=== PATIENT | female | born 1955 | race Caucasian/White ===

== ENCOUNTER 2019-01-25 13:36 | Inpatient (IN) ==
--- NOTE | 2019-01-25 13:46 | Emergency Department Note ---
Disposition Clinical Impression: Atrial fibrillation with RVR, Positive blood cultures Disposition: Admitted As Inpatient Condition: Good Referrals: Pauline Dawson DO [Primary Care Provider] - Forms: ED Satisfaction Letter, Work/School Release Time of Disposition: 01:30 General Adult HPI - General Chief complaint: ED General Medical Stated complaint: positive blood cultures Time Seen by Provider: 01/25/19 13:40 Source: patient, family Mode of arrival: ambulatory Limitations: no limitations Nursing Notes Reviewed: Yes Vital Signs Reviewed: Yes - History of Present Illness HPI Narrative: Patient was seen yesterday and treated for urinary tract infection. Blood culture came back positive today. Patient was called at home still has a fever and does not feel well so she was advised to come back to the hospital. She is taking her medicines as prescribed status is not feeling any better. There is been no nausea vomiting she has fever and chills no chest pain shortness breath or belly pain Onset (ago): day(s) (several) Location: other (generalized) Pain Severity: moderate Pain Scale: 8 Quality: aching Consistency: constant Improves with: nothing Worsens with: nothing - Related Data Home Medications Medication Instructions Recorded Confirmed Aspirin 81 mg PO DAILY 02/10/16 01/24/19 Cetirizine HCl [Zyrtec] 10 mg PO DAILY PRN 02/10/16 01/24/19 Cholecalciferol (D-3) [Vitamin D] 3,000 unit PO DAILY 02/10/16 01/24/19 Gabapentin [Neurontin] 300 mg PO HS 02/10/16 01/24/19 Sertraline [Zoloft] 50 mg PO DAILY 02/10/16 01/24/19 Pantoprazole Sodium [Protonix] 40 mg PO DAILY 12/10/16 01/24/19 Furosemide [Lasix] 40 mg PO DAILY 12/12/18 01/24/19 Previous Rx's Medication Instructions Recorded Ondansetron ODT [Zofran ODT] 4 mg SL Q6HR PRN #8 tab.rapdis 01/24/19 Promethazine [Phenergan] 25 mg PO Q6HR PRN #10 tablet 01/24/19 cephALEXin [Keflex] 1,000 mg PO BID #40 capsule 01/24/19 Allergies Allergy/AdvReac Type Severity Reaction Status Date / Time milnacipran [From Savella] Allergy Hives Verified 01/11/18 12:25 All systems ED: reviewed and negative except as stated. Review of Systems: As Per HPI Constitutional: Reports: as per HPI, fever, chills Eyes: Denies: eye pain, eye discharge, vision change ENT ED: Denies: ear pain, throat pain, dental pain, hearing loss, epistaxis, congestion, dysphagia Cardiovascular: Denies: chest pain, palpitations, dyspnea on exertion, edema, syncope Respiratory: Denies: cough, dyspnea, wheezes, hemoptysis, stridor Gastrointestinal: Denies: abdominal pain, nausea, vomiting, diarrhea, constipation, hematemesis, melena, hematochezia Genitourinary: Reports: as per HPI Musculoskeletal: Reports: as per HPI, myalgia. Denies: back pain, neck pain, arthralgia Integumentary: Reports: as per HPI Neurological: Denies: headache, weakness, numbness, paresthesias, confusion, abnormal gait, vertigo Psychiatric: Denies: anxiety, depression, suicidal thoughts, homicidal thoughts, auditory hallucinations, visual hallucinations Endocrine: Denies: fatigue Hematological/Lymphatic: Denies: easy bleeding, easy bruising Allergic/Immunologic: Denies: facial swelling, urticaria Past Medical History - Past Medical History Attestation: Yes The following information was validated with the patient. Source: patient, nursing notes reviewed Medical history: Reports: fibromyalgia, GERD, kidney stones, other Surgical history: Reports: hysterectomy Psychiatric history: Reports: depression PLAYER SERVICES REPRESENTATIVE history: Reports: no PLAYER SERVICES REPRESENTATIVE history - Social History Smoking Status: Never smoker Smokeless Tobacco Status: No Alcohol use: Reports: none Drug use: Reports: none Physical Exam - General Limitations: no limitations General appearance: alert, in no apparent distress - Head Head exam: atraumatic, normocephalic, normal inspection - Eye Eye exam: Present: normal appearance, PERRL, EOMI - ENT ENT exam: normal exam, normal oropharynx, mucous membranes moist - Neck Neck exam: Present: normal inspection, full ROM, trachea midline - Chest Chest inspection: Present: normal inspection, symmetric chest wall rise - Respiratory Respiratory exam: Present: normal lung sounds bilaterally - Cardiovascular Cardiovascular exam: Present: regular rate, normal rhythm, normal heart sounds - Abdominal Exam Abdominal exam: Present: soft, Non-Tender. Absent: tenderness, distention, guarding, rebound, rigidity - Extremities Exam Extremities exam: Present: normal inspection, full ROM. Absent: tenderness, pedal edema - Back Exam Back exam: Present: normal inspection, full ROM. Absent: tenderness - Neurological Exam Neurological exam: Present: alert, oriented X3 - Psychiatric Psychiatric exam: Present: normal affect, normal mood - Skin Skin exam: Present: warm, dry, intact, normal color Course Vital Signs Temperature 101.5 F H 01/25/19 13:37 Pulse Rate 121 01/25/19 13:37 Respiratory Rate 18 01/25/19 13:37 Blood Pressure 96/64 01/25/19 13:37 O2 Sat by Pulse Oximetry 95 01/25/19 13:37 Temperature 101.9 F H 01/25/19 14:48 Pulse Rate 140 01/25/19 14:48 Respiratory Rate 18 01/25/19 14:48 Blood Pressure 128/75 01/25/19 14:48 O2 Sat by Pulse Oximetry 98 01/25/19 14:48 Oxygen Delivery Oxygen Delivery Room Air Medical Decision Making - MDM Narrative Medical decision making narrative: I reviewed the patient's medication list as well as yesterday's laboratory studies Patient's condition was discussed with Dr. Vanegas who is graciously accepted admission to the hospital Dr. Vanegas requested 0.25mg of Dig - Medical Records Medical records reviewed: Yes I reviewed the patient's medical records. - Lab Data Lab results reviewed: Yes I reviewed the patient's lab results. Lab Results 01/25/19 01/25/19 Range/Units 14:04 14:04 Lactic Acid 0.9 (0.5-2.2) mmol/L Troponin I 0.05 H* (< 0.04) ng/mL - EKG Data EKG #1 EKG attestation: Yes I reviewed and interpreted this EKG. EKG results narrative: EKG attestation sinus rhythm today heart rate is 133 with A. fib with RVR QRS duration 84 ms QT interval 225 ms QTC 335 ms QRS axis is 49 degrees
[2019-01-25] MEDS ORDERED: cefTRIAXone 1,000 MG in 0.9 % Sodium Chloride Mini Bag 100 ML IVPB ONE (13:51)
[2019-01-25] MEDS ORDERED: 0.9 % Sodium Chloride 1,000 ML IVC SCH (14:00)
[2019-01-25] MEDS ORDERED: *HR* Digoxin 0.5 MG/2 ML AMPUL IVP ONE (16:24)
[2019-01-25 16:26] LABS: Basophils % 0.2 %; Hematocrit 37.1 % (35.3-44.9); Hemoglobin 11.9 g/dL (11.5-15.4); Immature Granulocytes % 0.3 % (0-4); Lymphocytes # 1.5 K/mcL (0.6-4.6); Lymphocytes % 7.3 %; Mean Corpuscular HGB Conc 32.1 g/dL (31.6-35.5); Mean Corpuscular Hemoglobin 28.8 pg (28.0-33.3); Mean Corpuscular Volume 89.8 fL (83.0-100.0); Mean Platelet Volume 10.2 fL (9.4-12.4); Monocytes # 1.1 K/mcL (0.0-1.3); Monocytes % 5.3 %; Neutrophils # 17.7 K/mcL (1.6-8.9); Platelet Count 360 K/mcL (140-400); Red Blood Count 4.13 M/mcL (3.82-4.97); Red Cell Distribution Width 13.7 % (11.5-14.5); Segmented Neutrophils % 86.9 %
[2019-01-25 16:39] LABS: Alanine Aminotransferase 14 Units/L (7-52); Albumin 3.5 g/dL (3.5-5.7); Albumin/Globulin Ratio 1.1 (1.1-2.2); Alkaline Phosphatase 79 Units/L (34-104); Aspartate Amino Transferase 19 Units/L (13-39); BUN/Creatinine Ratio 15 (6-26); Bilirubin,Total 0.4 mg/dL (0.3-1.0); Blood Urea Nitrogen 16 mg/dL (8-23); Calcium 9.3 mg/dL (8.6-10.3); Carbon Dioxide 26 mEq/L (23-29); Chloride 103 mEq/L (98-107); Globulin 3.1 g/dL (2.4-3.5); Glucose 132 mg/dL (70-105); Osmolality,Calculated 285 (280-300); Potassium 3.4 mEq/L (3.5-5.1); Sodium 136 mEq/L (136-145); Total Protein 6.6 g/dL (6.4-8.9); eGFR For Non-African Americans 51 (> 60)
[2019-01-25] MEDS ORDERED: Naloxone 0.4 MG/ML INJ IVP PRN (17:28)
[2019-01-25] MEDS ORDERED: Loratadine 10 MG TABLET PO PRN (17:28)
[2019-01-25] MEDS ORDERED: Ondansetron 4 MG/2 ML VIAL IVP PRN (17:28)
[2019-01-25] MEDS: 0.9 % Sodium Chloride 1,000 ML IVC SCH (19:42)
[2019-01-25] MEDS ORDERED: Levofloxacin 750 MG/150 ML 750 MG/150 ML BAG IVPB ONE (21:00)
[2019-01-25] MEDS: Gabapentin 300 MG CAPSULE PO SCH (21:28)
[2019-01-25 22:03] LABS: Bilirubin,Urine Negative (Negative); Blood,Urine Moderate (Negative); Clarity,Urine Clear (Clear); Color,Urine Yellow (Yellow); Glucose,Urine (UA) Normal (Normal); Ketones,Urine Negative (Negative); Leukocyte Esterase,Urine Negative (Negative); Nitrite,Urine Negative (Negative); PH,Urine 5.5 pH Units (5.0-8.0); Protein,Urine Trace mg/dL (Neg-Trace); Specific Gravity,Urine 1.015 (1.010-1.025); Urobilinogen,Urine Normal (Normal)
[2019-01-25 22:34] LABS: Bacteria,Urine Moderate per hpf (None-Few); Squamous Epithelial Cell,Urine Few per lpf (None-Few)
[2019-01-26] MEDS: 0.9 % Sodium Chloride 1,000 ML IVC SCH ×2 (03:30→09:42)
[2019-01-26 05:42] LABS: Basophils % 0.2 %; Eosinophils % 0.1 %; Hematocrit 33.1 % (35.3-44.9); Hemoglobin 10.9 g/dL (11.5-15.4); Immature Granulocytes % 0.6 % (0-4); Lymphocytes # 1.2 K/mcL (0.6-4.6); Lymphocytes % 8.5 %; Mean Corpuscular HGB Conc 32.9 g/dL (31.6-35.5); Mean Corpuscular Hemoglobin 28.8 pg (28.0-33.3); Mean Corpuscular Volume 87.3 fL (83.0-100.0); Mean Platelet Volume 10.6 fL (9.4-12.4); Monocytes # 0.7 K/mcL (0.0-1.3); Monocytes % 4.6 %; Platelet Count 317 K/mcL (140-400); Red Blood Count 3.79 M/mcL (3.82-4.97); Red Cell Distribution Width 13.4 % (11.5-14.5)
[2019-01-26 05:53] LABS: Neutrophils # 12.1 K/mcL (1.6-8.9)
[2019-01-26 05:58] LABS: BUN/Creatinine Ratio 14 (6-26); Blood Urea Nitrogen 11 mg/dL (8-23); Calcium 8.4 mg/dL (8.6-10.3); Carbon Dioxide 24 mEq/L (23-29); Chloride 106 mEq/L (98-107); Glucose 122 mg/dL (70-105); Osmolality,Calculated 289 (280-300); Potassium 2.7 mEq/L (3.5-5.1); Sodium 139 mEq/L (136-145); eGFR For Non-African Americans > 60 (> 60)
[2019-01-26] MEDS ORDERED: Aspirin 81 MG TAB.CHEW PO SCH (09:00)
[2019-01-26] MEDS: Cholecalciferol (D-3) 1,000 UNIT TABLET PO SCH (09:37)
[2019-01-26] MEDS: cefTRIAXone 1,000 MG in Water for inj. (sterile) 20 ML 10 ML IVP SCH (09:38)
[2019-01-26] MEDS: Furosemide 40 MG TABLET PO SCH (09:42)
--- NOTE | 2019-01-26 10:21 | Electrocardiograph Report ---
[place] [id number] Test Date: 2019-01-25 Pat Name: Cyndi Hilario Department: EDP-11 Room: [facility] Gender: F Mica Sizer: : 1955 Requested By: Bryan Call Order Number: [id number] Reading MD: Robson Grant Measurements Intervals [place] Rate: 133 P: AK: QRS: 49 QRSD: 84 T: -29 QT: 225 QTc: 335 Interpretive Statements Atrial fibrillation with rapid ventricular response Low voltage, precordial leads ST-T changes probably due to rate Electronically Signed On 01-26-2019 10:19:21 EDT by Robson Grant
--- NOTE | 2019-01-26 11:29 | Internal Med History&Physical ---
Date of Encounter: 01/26/19 Time of Encounter: 11:00 Assessment and Plan (1) Bacteremia Current visit: Yes Status: Acute Culture of blood and urine from 01/24/2019 shows gram-negative rods. She will continue Rocephin and Levaquin. Lactobacillus will be added. (2) UTI (urinary tract infection) Current visit: No Status: Acute Antibiotic treatment as above. Qualifiers: Urinary tract infection type: acute cystitis Hematuria presence: with hematuria Qualified Code(s): N30.01 - Acute cystitis with hematuria (3) Hypokalemia Current visit: Yes Status: Acute Likely due to Lasix use. Supplemental potassium will be ordered. (4) Anemia Current visit: Yes Status: Acute Hemoglobin has decreased to 10.9 today. Anemia testing will be ordered. Qualifiers: Anemia type: unspecified type Qualified Code(s): D64.9 - Anemia, unspecified (5) Weight loss Current visit: Yes Status: Acute TSH will be checked. (6) Atrial fibrillation with RVR Current visit: Yes Status: Acute Duration of AF unknown. Echocardiogram will be ordered. She will be started on Xarelto. TSH will be checked. Internal Medicine - H&P: HPI Chief complaint: Bacteremia Admitted From: Emergency Dept Plans for Post Hospital Care: Home History of present illness: Ms. Hilario is a 63 year old female who was directed to come to emergency room for bacteremia of likely UTI source from blood and urine specimens obtained on ER visit 01/24/2019. She was evaluated emergency room that day with WBC 21.7. She was given IV Rocephin and IV fluids. She felt stable for discharge home and received prescription for Keflex. She returned to emergency room as was directed and was reevaluated and found to have persistent leukocytosis. She also had AF with RVR. She was admitted to Medr floor for IV antibiotics and ongoing care needs. She states she has had multiple previous UTIs. She reports kidney stones in the past with most recent one over 20 years ago. She denies other known kidney or bladder disorders. Cardiovascular history is pertinent for bilateral leg edema which is being treated with daily Lasix. She denies hypertension ND heart failure angina DVT or pulmonary embolus. Past Med Surg Social Fam HX - Past Medical History Medical history: fibromyalgia, GERD, kidney stones, other Additional medical history: Fibromyalgia Psychiatric history: anxiety, depression - Past Surgical History Surgical History: hysterectomy Additional surgical history: bladder lift. varicose vein sx. cervical spine - Social History Smoking Status: Never smoker Smokeless Tobacco Status: No Alcohol use: none Drug use: none - Family History Mother Living Status: Still Living Hx Family Cardiac Disorders: Yes Hx Family Respiratory Disorders: Yes Internal Medicine - H&P: Meds Aspirin 81 mg PO DAILY 02/10/16 [History] Cetirizine HCl [Zyrtec] 10 mg PO DAILY PRN 02/10/16 [History] Cholecalciferol (D-3) [Vitamin D] 3,000 unit PO DAILY 02/10/16 [History] Gabapentin [Neurontin] 300 mg PO HS 02/10/16 [History] Sertraline [Zoloft] 50 mg PO DAILY 02/10/16 [History] Pantoprazole Sodium [Protonix] 40 mg PO DAILY 12/10/16 [History] Furosemide [Lasix] 40 mg PO DAILY 12/12/18 [History] Ondansetron ODT [Zofran ODT] 4 mg SL Q6HR PRN #8 tab.rapdis 01/24/19 [Rx] Promethazine [Phenergan] 25 mg PO Q6HR PRN #10 tablet 01/24/19 [Rx] cephALEXin [Keflex] 1,000 mg PO BID #40 capsule 01/24/19 [Rx] Allergy/AdvReac Type Severity Reaction Status Date / Time milnacipran [From Savella] Allergy Hives Verified 01/11/18 12:25 All Systems PM: A 10-system review of systems was performed and is negative for pertinent findings except as documented above in the HPI. Review of systems: Gen.: She states her weight has decreased proximal to 25 pounds in the past 9 months. She attributes this to decreased food intake with new dentures Cardiovascular: As per history of present illness Respiratory: She is a lifelong nonsmoker denies chronic lung disease GI: She has GERD. She denies disorders of her liver gallbladder or exocrine pancreas : As per history of present illness Neurologic: She denies large discussion strokes or seizures. Endocrine: She has hyperlipidemia but denies diabetes or thyroid disease. Hematology/oncology: She denies blood disorders cancers or known anemia. Psychiatric: She has anxiety depression. She denies other mental health diagnos is. [place] skeletal: She had herniated nucleus pulposus surgery in the past. She has RLS and has been told she had low vitamin D level. She denies gout, arthritis, or other bone joint or muscle disorders. - Constitutional Vitals: Temp Pulse Resp BP Pulse Ox 99 F 82 16 120/68 95 01/26/19 10:58 01/26/19 10:58 01/26/19 10:58 01/26/19 10:58 01/26/19 10:58 Exam: Gen.: She is a well-developed well-nourished female resting comfortably in bed who appears in no acute distress HEENT: Head is atraumatic and normocephalic. Eyes: EOMI. There is no scleral icterus. Mouth: Mucosa is moist. Neck: Supple and nontender. There is no thyromegaly or adenopathy noted. Heart: Irregularly irregular with rate approximately 80/m. No murmurs or gallops are heard. Lungs: No wheezes or crackles are heard. Abdomen: Soft and nontender. No masses or guarding are noted. Extremities: There is no cyanosis edema or clubbing noted. Dorsalis pedis and posterior tibial pulses are 1-2 over 2 bilaterally. Neurologic: Mental status: She is talkative and a good historian. Cranial nerves: Smile is symmetric. Forehead wrinkles bilaterally. Tongue protrudes midline. EOMI. Motor: There is no pronator drift. Cerebellar: Finger to nose is intact bilaterally. Skin: Warm and dry Internal Med - H&P Results - Labs CBC & Chem 7: 01/26/19 04:13 01/26/19 04:13 Labs: Short CBC 01/25/19 01/26/19 Range/Units 16:18 04:13 WBC 20.4 H 14.1 H (4.3-11.1) K/mcL Hgb 11.9 10.9 L (11.5-15.4) g/dL Hct 37.1 33.1 L (35.3-44.9) % Plt Count 360 317 (140-400) K/mcL Neutrophils # 17.7 H 12.1 H (1.6-8.9) K/mcL BMP 01/25/19 01/26/19 14:35 04:13 Sodium 136 139 Potassium 3.4 L 2.7 L Chloride 103 106 Carbon Dioxide 26 24 BUN 16 11 Creatinine 1.07 0.76 Glucose 132 H 122 H Calcium 9.3 8.4 L Cardiac Enzymes 01/25/19 01/25/19 Range/Units 14:04 15:54 Troponin I 0.05 H* 0.04 H* (< 0.04) ng/mL Liver Function 01/25/19 Range/Units 14:35 Total Bilirubin 0.4 (0.3-1.0) mg/dL AST 19 (13-39) Units/L ALT 14 (7-52) Units/L Alkaline Phosphatase 79 (34-104) Units/L Albumin 3.5 (3.5-5.7) g/dL Urine 01/25/19 Range/Units 21:55 Urine Color Yellow (Yellow) Urine Clarity Clear (Clear) Urine pH 5.5 (5.0-8.0) pH Units Ur Specific [place] 1.015 (1.010-1.025) Urine Protein Trace (Neg-Trace) mg/dL Urine Glucose (UA) Normal (Normal) mg/dL
[2019-01-26] MEDS: Acetaminophen 325 MG TABLET PO PRN ×2 (11:39→17:19)
[2019-01-26] MEDS: 0.45 % Sodium Chloride w/KCl 20 MEQ/1,000 ML MLS IVC SCH (12:33)
[2019-01-26] MEDS ORDERED: *HR* Rivaroxaban 10 MG TABLET PO SCH (17:00)
[2019-01-26] MEDS: Gabapentin 300 MG CAPSULE PO SCH (21:41)
[2019-01-27] MEDS: 0.45 % Sodium Chloride w/KCl 20 MEQ/1,000 ML MLS IVC SCH (01:53)
[2019-01-27 06:02] LABS: Basophils % 0.3 %; Eosinophils # 0.1 K/mcL (0.0-0.6); Eosinophils % 0.9 %; Hematocrit 34.2 % (35.3-44.9); Hemoglobin 11.3 g/dL (11.5-15.4); Immature Granulocytes % 0.6 % (0-4); Lymphocytes # 1.5 K/mcL (0.6-4.6); Lymphocytes % 13.3 %; Mean Corpuscular Hemoglobin 28.8 pg (28.0-33.3); Mean Corpuscular Volume 87.2 fL (83.0-100.0); Mean Platelet Volume 10.2 fL (9.4-12.4); Monocytes # 0.5 K/mcL (0.0-1.3); Monocytes % 4.6 %; Neutrophils # 9.3 K/mcL (1.6-8.9); Platelet Count 395 K/mcL (140-400); Red Blood Count 3.92 M/mcL (3.82-4.97); Red Cell Distribution Width 13.4 % (11.5-14.5); Segmented Neutrophils % 80.3 %
[2019-01-27 06:12] VITALS: BP 137/79
[2019-01-27 06:38] LABS: BUN/Creatinine Ratio 13 (6-26); Blood Urea Nitrogen 9 mg/dL (8-23); Calcium 9.2 mg/dL (8.6-10.3); Carbon Dioxide 23 mEq/L (23-29); Chloride 108 mEq/L (98-107); Glucose 107 mg/dL (70-105); Osmolality,Calculated 289 (280-300); Potassium 3.3 mEq/L (3.5-5.1); Sodium 140 mEq/L (136-145); eGFR For Non-African Americans > 60 (> 60)
[2019-01-27] MEDS: Acetaminophen 325 MG TABLET PO PRN (06:43)
[2019-01-27 06:47] LABS: Thyroid Stimulating Hormone 2.896 mcIU/mL (0.340-5.600)
[2019-01-27] MEDS: Furosemide 40 MG TABLET PO SCH (07:59)
[2019-01-27] MEDS: cefTRIAXone 1,000 MG in Water for inj. (sterile) 20 ML 10 ML IVP SCH (07:59)
[2019-01-27] MEDS: Cholecalciferol (D-3) 1,000 UNIT TABLET PO SCH (07:59)
[2019-01-27 09:09] LABS: % Iron Saturation 3 % (15-50); Iron 10 mcg/dL (50-170); Transferrin 211 mg/dL (203-362)
[2019-01-27 09:25] LABS: Ferritin 246 ng/mL (10-120)
[2019-01-27 09:42] LABS: Folate > 22.3 ng/mL (3.0-16.0); Vitamin B12 852 pg/mL (250-1100)
--- NOTE | 2019-01-27 09:57 | Discharge Summary ---
Orders not resulted at time of discharge: Pending orders 01/25/19 14:00 Culture,Blood [BC] Stat 01/25/19 21:55 Culture,Urine [RM] Stat Date of Encounter: 01/27/19 Time of Encounter: 09:50 - Discharge Diagnosis (1) Bacteremia Priority: Primary Status: Acute (2) UTI (urinary tract infection) Priority: Secondary Status: Acute Qualifiers: Urinary tract infection type: acute cystitis Hematuria presence: with hematuria Qualified Code(s): N30.01 - Acute cystitis with hematuria (3) Hypokalemia Priority: Secondary Status: Acute (4) Anemia Priority: Secondary Status: Acute Qualifiers: Anemia type: unspecified type Qualified Code(s): D64.9 - Anemia, unspecified (5) Weight loss Priority: Secondary Status: Acute (6) Atrial fibrillation with RVR Priority: Secondary Status: Resolved Hospital course: Ms. Hilario is a 63 year old female who was directed to come to emergency room for bacteremia of likely UTI source from blood and urine specimens obtained on ER visit 01/24/2019. She was evaluated emergency room that day with WBC 21.7. She was given IV Rocephin and IV fluids. She felt stable for discharge home and received prescription for Keflex. She returned to emergency room as was directed and was reevaluated and found to have persistent leukocytosis. She also had AF with RVR. She was admitted to [facility] floor for IV antibiotics and ongoing care needs. Initial orders were written by the emergency room physician. I saw her on January 26 and performed the history and physical. She was started on Rocephin and Levaquin IV. Lactobacillus was added. She had good clinical response with WBC decreasing to 11.6 by day of discharge with less left shift on differential. She remained afebrile the last 24 hours of hospitalization. Urine and blood cultures from January 24 showed Escherichia coli pansensitive to antibiotics on test panel. She will continue Keflex 1000 milligrams twice a day as prescribed previously. Lactobacillus will be given. Hemoglobin decrease to 10.9 on 01/26/2019. Anemia testing showed iron 10, transferrin saturation 3%, transferrin 211, ferritin 246, B12 852, and folate > 22.3. She will be started on ferrous sulfate along with ascorbic acid to facilitate absorption. Her PCP can decide if ongoing daily aspirin use is clinically needed. She was given a single dose of Cardizem and Lanoxin in emergency room. Echocardiogram was done to further evaluate and showed LVEF 50%. There was indeterminate diastolic function assessment due to atrial fibrillation. Atria were not enlarged. Estimated RVSP was slightly elevated at 37 mmHg. There was mild tricuspid regurgitation but no other significant valvular abnormalities were seen. Atrial fibrillation rate slowed and she later converted to NSR. She was started on Xarelto and this will be continued at discharge. TSH returned normal at 2.896. Hypokalemia was treated with supplemental potassium and this will be continued at discharge. On January 27 she felt improved and stable for discharge home. She will follow with her PCP Dr. Pauline Dawson within 1 week. - Time Spent with Patient Total time spent providing and/or coordinating discharge services: - Discharge Medications Prescriptions: New Ascorbic Acid [C-500] 500 mg PO DAILY #30 tablet Lactobacillus [Culturelle] 1 each PO BID #20 cap.sprink Ferrous Sulfate 325 mg PO DAILY #30 tablet Potassium Chloride 20 meq PO DAILY #30 tab.er.prt Rivaroxaban [Xarelto] 20 mg PO DAILY #30 tablet Continued Sertraline [Zoloft] 50 mg PO DAILY Gabapentin [Neurontin] 300 mg PO HS Cholecalciferol (D-3) [Vitamin D] 3,000 unit PO DAILY Aspirin 81 mg PO DAILY Cetirizine HCl [Zyrtec] 10 mg PO DAILY PRN PRN Reason: Allergy Symptoms Pantoprazole Sodium [Protonix] 40 mg PO DAILY Furosemide [Lasix] 40 mg PO DAILY cephALEXin [Keflex] 1,000 mg PO BID #40 capsule Promethazine [Phenergan] 25 mg PO Q6HR PRN #10 tablet PRN Reason: Nausea Ondansetron ODT [Zofran ODT] 4 mg SL Q6HR PRN #8 tab.rapdis PRN Reason: Nausea Home Medications: Aspirin 81 mg PO DAILY 02/10/16 [History] Cetirizine HCl [Zyrtec] 10 mg PO DAILY PRN 02/10/16 [History] Cholecalciferol (D-3) [Vitamin D] 3,000 unit PO DAILY 02/10/16 [History] Gabapentin [Neurontin] 300 mg PO HS 02/10/16 [History] Sertraline [Zoloft] 50 mg PO DAILY 02/10/16 [History] Pantoprazole Sodium [Protonix] 40 mg PO DAILY 12/10/16 [History] Furosemide [Lasix] 40 mg PO DAILY 12/12/18 [History] Ondansetron ODT [Zofran ODT] 4 mg SL Q6HR PRN #8 tab.rapdis 01/24/19 [Rx] Promethazine [Phenergan] 25 mg PO Q6HR PRN #10 tablet 01/24/19 [Rx] cephALEXin [Keflex] 1,000 mg PO BID #40 capsule 01/24/19 [Rx] Ascorbic Acid [C-500] 500 mg PO DAILY #30 tablet 01/27/19 [Rx] Ferrous Sulfate 325 mg PO DAILY #30 tablet 01/27/19 [Rx] Lactobacillus [Culturelle] 1 each PO BID #20 cap.sprink 01/27/19 [Rx] Potassium Chloride 20 meq PO DAILY #30 tab.er.prt 01/27/19 [Rx] Rivaroxaban [Xarelto] 20 mg PO DAILY #30 tablet 01/27/19 [Rx] Allergies/Adverse Reactions: Allergy/AdvReac Type Severity Reaction Status Date / Time milnacipran [From Savella] Allergy Hives Verified 01/11/18 12:25 Date of admission: 01/26/19 11:44 Primary care physician: Maria M Collins Consults: 01/25/19 19:03 Consult to Nutrition [CONS] Routine Comment: Consulting Provider: NUTRITION Reason for Dietary Consult: MST Score - Constitutional Vitals: Temp Pulse Resp BP Pulse Ox 99.4 F 73 16 137/79 97 01/27/19 06:12 01/27/19 06:12 01/27/19 06:12 01/27/19 06:12 01/27/19 06:12 - Patient Status Disposition: Home, Self-Care Condition: Good - Discharge Instructions Follow Up With: Pauline Dawson DO [Primary Care Provider] - 1 week - Diet and Activity Activity: resume usual activities as tolerated Diet: advance to your usual diet
== END 2019-01-27 11:15 | disposition home or self-care (01) | DRG 872 ==
LOC: EMEROOPIK 13:36 → INPPIK 13:36
PROVIDERS: ADMIT Internal Medicine; ATTEND Internal Medicine